=== PATIENT | male | born 1945 | race Caucasian/White ===

== ENCOUNTER 2016-07-11 13:41 | Inpatient (IN) | payer MEDICARE ==
[2016-07-11] MEDS ORDERED: Morphine INJ* 4 MG/ML 1 ML CARPUJECT IV ONE ×2 (14:44→16:25)
[2016-07-11] MEDS ORDERED: NS 0.9% 1000 ML* 1,000 ML IV ONE (14:44)
[2016-07-11] MEDS ORDERED: Ondansetron INJ* 2 MG/ML VIAL IV ONE (14:44)
--- NOTE | 2016-07-11 15:02 | RAD ---
Indication: Preop. 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 Single view of the chest demonstrates no mediastinal shift. Heart is of normal size and configuration. Lung ruth are clear. IMPRESSION: NO ACTIVE CARDIOPULMONARY DISEASE IS NOTED.
--- NOTE | 2016-07-11 15:12 | RAD ---
Indication: Severe LEFT hip pain for 3 weeks. Remote fall 2010 years ago. Comparison: None. Technique: AP pelvis and AP and crosstable lateral views LEFT hip. Report: Transcervical mildly impacted LEFT femoral neck fracture with mild varus angulation. Permeative pattern of lucencies in the LEFT femoral neck suspicious for a potential underlying pathologic lesion predisposing to fracture. The femoral head is normally located in the acetabulum. Negative for pelvic fracture or joint diastases. No additional osseous lesions evident. Both hips are remarkable for mild osteophytosis with partial loss of femoral head sphericity. Soft tissue swelling about the LEFT hip. IMPRESSION: Transcervical LEFT femoral neck fracture with suggestion of an underlying infiltrative pathologic lesion. Correlate with clinical history. Results discussed with JENNA Wise 07/11/2016 3:09 PM EST
[2016-07-11 15:29] LABS: Hematocrit 45 % (42-52); Hemoglobin 15.3 g/dl (14.0-18.0); Mean Corpuscular HGB Conc 34 g/dl (31-36); Mean Corpuscular Hemoglobin 28 pg (27-31); Mean Corpuscular Volume 82 fL (80-94); Mean Platelet Volume 8 um3 (7.4-10.4); Red Blood Count 5.49 10^6/ul (4.0-5.4); Red Cell Distribution Width 15 % (10.5-15); White Blood Count 10.3 10^3/ul (3.5-10.8)
[2016-07-11 15:41] LABS: Albumin 4.3 g/dL (3.2-5.2); BUN/Creatinine Ratio 19.8 (8-20); Calcium 10.2 mg/dL (8.6-10.3); EGFR African American 121.5 (>60); EGFR Non-African American 94.5 (>60); Globulin 3.2 g/dL (2-4); Potassium 3.6 mmol/L (3.5-5.0); Total Bilirubin 0.8 mg/dL (0.2-1.0); Total Protein 7.5 g/dL (6.4-8.9)
--- NOTE | 2016-07-11 16:00 | RAD ---
INDICATION: Left hip fracture. COMPARISON: Comparison is made with a prior x-ray study of the left hip from July 11, 2016. TECHNIQUE: Contiguous axial sections were obtained through the pelvis without intravenous or oral contrast. Images were reconstructed in the coronal and sagittal planes. FINDINGS: There are multiple lytic areas present within the left femoral head and neck. There is a transverse pathologic fracture through the proximal portion of the femoral neck. The fracture fragments are slightly impacted. There is mild varus angulation of the fracture fragments. There are small well-defined lucent lesions in the right femoral head. These have well-defined margins and likely represent subchondral cysts. No other focal osseous abnormalities are seen in the pelvis. There is mild to moderate bilateral osteoarthritic change in the hips. The visualized portion of the small bowel and colon appear nondistended. There is moderate to severe sigmoid diverticulosis without evidence for diverticulitis. No free intraperitoneal air or fluid is seen. IMPRESSION: LYTIC LESIONS WITHIN THE LEFT FEMORAL HEAD AND NECK MOST CONSISTENT WITH AN UNDERLYING NEOPLASTIC PROCESS LIKELY METASTATIC LESS LIKELY PRIMARY TUMOR. THERE IS AN UNDERLYING PATHOLOGIC FRACTURE OF THE FEMORAL NECK DESCRIBED ABOVE.
--- NOTE | 2016-07-11 16:25 | ED ---
Lower Extremity - HPI Summary HPI Summary: Patient presents with extreme left hip pain without known injury. He began to have pain in the hip approximately three weeks ago, but He has walked with a cane for a year due to right knee pain and had what he thought was intermittent left hip bursitis. His pain intensified three weeks ago and 2-3 days ago it became unbearable, so he went to [facility]. He was scheduled for an x-ray today and given percocet. He has continued to walk on the hip with his cane. Today the pain was intolerable so he came to the ED. He denies previous injury to this hip. He thinks he is pretty healthy, because he never sees a doctor, and if he does have an issue he "just gets through it". No N/T, erythema, or edema. - History of Current Complaint Chief Complaint: EDExtremityLower Stated Complaint: LT HIP INJURY Time Seen by Provider: 07/11/16 14:09 Hx Obtained From: Patient, Family/Lubricating Engineer Mechanism Of Injury: Unknown Onset of Pain: Days Onset/Duration: Worse Since - two days ago Severity Initially: Severe Severity Currently: Severe Pain Intensity: 13 Timing: Constant Location: Is Discrete @ - left hip Character Of Pain: Sharp, Aching Associated Signs And Symptoms: Positive: Negative Aggravating Factor(s): Standing, Movement Alleviating Factor(s): Nothing Able to Bear Weight: No - Allergies/Home Medications Allergies/Adverse Reactions: Allergies Allergy/AdvReac Type Severity Reaction Status Date / Time No Known Allergies Allergy Verified 04/03/12 18:33 Home Medications: Home Medications NK [No Home Medications Reported] 07/11/16 [History Confirmed 07/11/16] PMH/Surg Hx/FS Hx/Imm Hx Previously Healthy: Yes Musculoskeletal History: Denies: Hx Rheumatoid Arthritis, Hx Osteoporosis Infectious Disease History: No Infectious Disease History: Denies: Traveled Outside the [place] in Last 30 Days - Social History Occupation: Employed Full-time Lives: With Family Alcohol Use: None Substance Use Type: Reports: None Smoking Status (MU): Never Smoked Tobacco Review of Systems Positive: Myalgia, Decreased ROM All Other Systems Reviewed And Are Negative: Yes Physical Exam Triage Information Reviewed: Yes Vital Signs On Initial Exam: Initial Vitals BP 154/81 07/11/16 14:06 Vital Signs Reviewed: Yes Appearance: Positive: Well-Appearing, Well-Nourished, Pain Distress Skin: Positive: Warm, Skin Color Reflects Adequate Perfusion, Dry, Soft Head/Face: Positive: Normal Head/Face Inspection Eyes: Positive: EOMI, LARISA, Conjunctiva Clear ENT: Positive: Hearing grossly normal Respiratory/Lung Sounds: Positive: Breath Sounds Present Cardiovascular: Positive: RRR Musculoskeletal: Positive: Limited @ - any movement of the left hip causes excruciating pain, Pain @ - TTP left hip Neurological: Positive: Sensory/Motor Intact, Alert, Oriented to Person Place, Time, NV Bundle Intact Distally, Unable to Assess Gait Psychiatric: Positive: Affect/Mood Appropriate AVPU Assessment: Alert - Alla Coma Scale Coma Scale Total: 15 Diagnostics - Vital Signs Vital Signs Temp Pulse Resp BP Pulse Ox 07/11/16 15:17 20 07/11/16 15:14 82 157/78 98 07/11/16 15:11 87 98 07/11/16 14:08 98.2 F 82 18 154/81 99 07/11/16 14:06 154/81 - Laboratory Lab Results: Lab Results 07/11/16 07/11/16 07/11/16 Range/Units 15:05 15:05 15:05 WBC 10.3 (3.5-10.8) 10^3/ul RBC 5.49 H (4.0-5.4) 10^6/ul Hgb 15.3 (14.0-18.0) g/dl Hct 45 (42-52) % MCV 82 (80-94) fL MCH 28 (27-31) pg MCHC 34 (31-36) g/dl RDW 15 (10.5-15) % Plt Count 296 (150-450) 10^3/ul MPV 8 (7.4-10.4) um3 Neut % (Auto) 79.5 (38-83) % Lymph % (Auto) 11.9 L (25-47) % [place] % (Auto) 7.5 (1-9) % Eos % (Auto) 0.3 (0-6) % Baso % (Auto) 0.8 (0-2) % Absolute Neuts (auto) 8.2 H (1.5-7.7) 10^3/ul Absolute Lymphs (auto) 1.2 (1.0-4.8) 10^3/ul Absolute Monos (auto) 0.8 (0-0.8) 10^3/ul Absolute Eos (auto) 0 (0-0.6) 10^3/ul Absolute Basos (auto) 0.1 (0-0.2) 10^3/ul Absolute Nucleated RBC 0 10^3/ul Nucleated RBC % 0 INR (Anticoag Therapy) 0.98 (0.89-1.11) Sodium 135 (133-145) mmol/L Potassium 3.6 (3.5-5.0) mmol/L Chloride 102 (101-111) mmol/L Carbon Dioxide 22 (22-32) mmol/L Anion Gap 11 (2-11) mmol/L BUN 16 (6-24) mg/dL Creatinine 0.81 (0.67-1.17) mg/dL Est GFR ( Amer) 121.5 (>60) Est GFR (Non-Af Amer) 94.5 (>60) BUN/Creatinine Ratio 19.8 (8-20) Glucose 118 H (70-100) mg/dL Calcium 10.2 (8.6-10.3) mg/dL Total Bilirubin 0.80 (0.2-1.0) mg/dL AST 25 (13-39) U/L ALT 13 (7-52) U/L Alkaline Phosphatase 89 (34-104) U/L Total Protein 7.5 (6.4-8.9) g/dL Albumin 4.3 (3.2-5.2) g/dL Globulin 3.2 (2-4) g/dL Albumin/Globulin Ratio 1.3 (1-3) Result Diagrams: 07/14/16 06:12 07/14/16 06:12 Lab Statement: Any lab studies that have been ordered have been reviewed, and results considered in the medical decision making process. - Radiology No standard instances Xray Interpretation: Positive (See Comments) Radiology Interpretation Completed By: Radiologist - left femoral neck fracture - CT No standard instances CT Interpretation: Positive (See Comments) CT Interpretation Completed By: Radiologist - Left femoral neck fracture that appear pathologic Re-Evaluation - Re-Evaluation First Eval Re-Evaluation Time: 16:00 Change: Improved - pain improved but present Second Eval Re-Evaluation Time: 16:15 Change: Worse - pain increased after manipulation for CT. Lower Extremity Course/Dx - Diagnoses Differential Diagnosis/HQI/PQRI: Positive: Arthritis, Bursitis, Compartment Syndrome, Dislocation, Fracture (Closed), Infection, Sprain, Strain Provider Diagnoses: Fracture of femoral neck, left, closed - Physician Notifications Discussed Care of Patient With: Dr. Bills with orthopedis surgery; Dr. Lundberg with hospital medicine Time Discussed With Above Provider: 15:40 Instructed by Provider To: Admit As Inpatient Discharge - Discharge Plan Condition: Stable Disposition: ADMITTED TO [facility]
--- NOTE | 2016-07-11 17:22 | RAD ---
Indication: Hip fracture. 4 views of the femur demonstrates no fracture of the diaphysis or distal femur. Comminuted fracture of the neck of the left femur is again noted. No obvious lytic lesions are noted in the distal shaft of the femur. IMPRESSION: Fracture of the neck of the left femur. The diaphysis is grossly unremarkable.
[2016-07-11] MEDS ORDERED: Ondansetron INJ* 2 MG/ML VIAL IV PRN (18:02)
[2016-07-11] MEDS ORDERED: Diatrizoate Meg/Sod(CONTRAST) 30 ML ORAL.SOLN PO ONE (18:02)
[2016-07-11] MEDS ORDERED: Acetaminophen TAB* 325 MG PO PRN (18:02)
[2016-07-11] MEDS ORDERED: Zolpidem TAB* 5 MG PO PRN (18:03)
[2016-07-11] MEDS ORDERED: hydrALAZINE IV* 20 MG/ML VIAL IV SLOW PU PRN (18:11)
[2016-07-11] MEDS ORDERED: Iohexol 300* (CONTRAST) 10 ML SDV IV ONE (18:20)
[2016-07-11] MEDS: Morphine INJ* 4 MG/ML 1 ML CARPUJECT IV PRN ×2 (19:46→23:18)
[2016-07-11] MEDS: NS 0.9% 1000 ML* 1,000 ML IV SCH (20:15)
[2016-07-11] MEDS: oxyCODONE TAB* 5 MG TAB PO PRN (20:18)
--- NOTE | 2016-07-11 20:18 | RAD ---
Indication: Pathologic fracture, evaluate for malignancy. CT of the chest, abdomen and pelvis was performed after IV contrast administration. Coronal and sagittal reconstructed images were obtained. Administered 91.0 ml of OMNIPAQUE 300 mgi/ml was given according to hospital protocol. Inferior thyroid lobes are unremarkable. No mediastinal or hilar adenopathy is noted. The heart demonstrates no pericardial effusion. The trachea and major bronchi appear patent. The lung ruth demonstrate dependent changes. No alveolar consolidation is noted. No pleural fluid is identified. No focal nodules are identified. There is increased sclerosis in the right humeral head. This may be due to avascular necrosis although other etiologies are not excluded. The left humeral head demonstrates minimal sclerosis. The liver is normal in size. No intrahepatic ductal dilatation is noted. Small low density lesion in the inferior tip of the right lobe of liver measures approximately 5 mm. No other focal lesions are present. The gallbladder demonstrates no calcified gallstones. No pericholecystic fluid or wall thickening is noted. The pancreas demonstrates no mass or pancreatic duct dilatation. The spleen is normal in size. No adrenal lesions are noted. The kidneys demonstrate symmetric nephrograms without evidence of focal lesions. Atherosclerotic aorta is noted. Small retroperitoneal lymph nodes are noted in the left para-aortic space. They measure up to 12 mm. Common iliac and external iliac arteries are unremarkable. No dilated loops of bowel are noted. The mesentery demonstrates multiple scattered mesenteric lymph nodes which are mildly enlarged. The measure up to 8 mm. There is some infiltration of fat in this area. No dilated loops of bowel are noted. The colon is filled with stool. The urinary bladder is unremarkable. The prostate is unremarkable. No hernias are noted. Right inguinal lymph node measuring up to 11 mm is noted. Again noted is a left hip fracture with multiple lytic and sclerotic areas. Lytic lesions are noted in the right femoral head as well although the well defined. IMPRESSION: Increased sclerosis in the right humeral head of uncertain etiology. No pulmonary lesions are noted. Nonspecific 5 mm low density is noted in the inferior tip of the right lobe of liver. Multiple mesenteric lymph nodes are noted as well as left periaortic and retroperitoneal lymph nodes. These are of uncertain etiology. Right inguinal lymph node measuring up to 11 mm is noted. Several small lytic lesion in the right femoral head as well as lytic and sclerotic lesions in the left femoral neck..
[2016-07-11] MEDS: Enoxaparin(*) 40 MG/0.4 ML SYR SUBCUT SCH (20:20)
[2016-07-11] MEDS: Senna TAB PO SCH (20:22)
[2016-07-11] MEDS: Docusate CAP* 100 MG PO SCH (20:22)
--- NOTE | 2016-07-11 21:20 | HP ---
ADMISSION HISTORY AND PHYSICAL: DATE OF ADMISSION: 07/11/16 PRIMARY CARE PROVIDER: Dr. Irving HEALTHCARE PROXY: His son. CODE STATUS: Full. SOURCE OF INFORMATION: History obtained from interview with the patient. RELIABILITY: Good. CHIEF COMPLAINT: Left hip pain. HISTORY OF PRESENT ILLNESS: This is a 71-year-old gentleman with no known past medical history who had been experiencing intermittent left hip pain that represents intermittent bursitis that became more consistent over the last 3 weeks and persistently worse in pain over the last 2 to 3 days. He was seen at [facility], given Percocet and was planning for an x-ray followup today except his pain was intolerable today and proceeded to [facility]. In the emergency room, x-ray was notable for transcervical left femoral neck fracture. There was suggestion of underlying infiltrative pathologic process. He notes no trauma to the leg or hip. He notes strenuousl activity is____ deer hunting or fly fishing. He built a house this year. He never experienced shortness of breath or chest pain. He had a knee surgery in 1970, had no difficulty with anesthesia. He does wear dentures, has had no neck trauma. When seen by this author, he had received 4 mg of morphine. His pain was well controlled, although not completely abated. He had no complaints. PAST MEDICAL HISTORY: No known past medical history. PAST SURGICAL HISTORY: Right knee surgery in 1970. MEDICATIONS: Takes [id number] multivitamin once daily. ALLERGIES: No known drug allergies. FAMILY HISTORY: No history of CAD. Father had prostate cancer. SOCIAL HISTORY: Tobacco, 2 packs per day for 10 years, quit 25 years prior. History of alcohol abuse, quit 40 years prior. Retired from the [employer]. REVIEW OF SYSTEMS: Hip pain, otherwise all other systems reviewed, negative. PHYSICAL EXAMINATION GENERAL: Sitting up in bed, interactive, pleasant, in no apparent distress. VITAL SIGNS: In the emergency room, blood pressure 164/79, heart rate 82, respiratory rate 16, 98% on room air, T-max in the emergency room 98.2. HEENT: Oropharynx is clear. Moist mucous membranes. Sclerae anicteric. NECK: Non-elevated JVD. Has 1 to 2 mm mobile, nontender lymph node on his anterior cervical chain on the right. LUNGS: Clear to auscultation bilaterally. HEART: Regular rate and rhythm. No murmurs, rubs, or gallops. ABDOMEN: Soft, nontender, nondistended. Positive bowel sounds. EXTREMITIES: Warm and well perfused without clubbing, cyanosis, or edema. NEURO: Alert and oriented x3. Cranial nerves are intact. He has pain over his left hip with any movement of his left leg. No apparent anxiety, agitation or depression. LABORATORY DATA: Pertinent labs reviewed. BUN 15, creatinine 0.81, glucose of 118, hemoglobin 15.3. Data reviewed. Chest x-ray: No active cardiopulmonary disease. CT pelvis: Impression, lytic lesions within the left femoral head and neck most consistent with an underlying neoplastic process likely metastatic disease , less likely primary tumor. There is an underlying pathologic fracture on the femoral neck. ASSESSMENT AND PLAN: This is a 71-year-old man with persistent left hip pain found with pathologic hip fracture, concerning underlying neoplastic process. 1. Hip fracture, seen by Dr. Bills, discussed with this author. The necessary hardware is not currently available. Plan for surgery Friday. Pain control with morphine as well as oxycodone or Tylenol as needed. Concern for the underlying neoplastic process. Plan on a CT chest, abdomen and pelvis with contrast. Two liters of normal saline in the setting of contrast. BMP in the morning. Low risk for intermediate risk procedure. No change to above medications. No additional testing needed prior to procedure. EKG is pending which we will obtain given he will be in the hospital two days prior to the OR. 2. DVT prophylaxis. Lovenox. 3. Code status. Full. CC: Dr. Irving * [id number]/CPS #: [id number]
[2016-07-12] MEDS: oxyCODONE TAB* 5 MG TAB PO PRN ×4 (01:38→18:17)
[2016-07-12] MEDS: Morphine INJ* 4 MG/ML 1 ML CARPUJECT IV PRN ×3 (03:54→20:44)
[2016-07-12] MEDS: NS 0.9% 1000 ML* 1,000 ML IV SCH (04:47)
[2016-07-12 06:09] LABS: BUN/Creatinine Ratio 14.3 (8-20); Calcium 8.9 mg/dL (8.6-10.3); EGFR African American 128.8 (>60); EGFR Non-African American 100.2 (>60); Potassium 3.9 mmol/L (3.5-5.0)
--- NOTE | 2016-07-12 08:20 | PN ---
Subjective Date of Service: 07/12/16 Interval History: Seen and examined Slept but not great. Srini did not help Pain tolerable but still present Results from CT shared Objective Active Medications: Acetaminophen (Tylenol Tab*) 650 mg PO Q6H PRN PRN Reason: PAIN Docusate Sodium (Colace Cap*) 100 mg PO BID [facility] Last Admin: 07/11/16 20:22 Dose: Not Given Enoxaparin Sodium (Lovenox(*)) 40 mg SUBCUT Q24H [facility] Last Admin: 07/11/16 20:20 Dose: 40 mg Hydralazine HCl (Apresoline Iv*) 5 mg IV SLOW PU Q6H PRN PRN Reason: SBP>180 OR DBP>110 Sodium Chloride (Ns 0.9% 1000 Ml*) 1,000 mls @ 125 mls/hr IV PER RATE [facility] Stop: 07/13/16 02:14 Last Admin: 07/12/16 04:47 Dose: 125 mls/hr Morphine Sulfate (Morphine Inj (Syringe)*) 4 mg IV Q4H PRN PRN Reason: PAIN Last Admin: 07/12/16 03:54 Dose: 4 mg Ondansetron HCl (Zofran Inj*) 4 mg IV Q4H PRN PRN Reason: NAUSEA Oxycodone HCl (Roxycodone Tab*) 5 mg PO Q4H PRN PRN Reason: PAIN Last Admin: 07/12/16 01:38 Dose: 5 mg Senna (Senokot Tab*) 1 tab PO BID [facility] Last Admin: 07/11/16 20:22 Dose: Not Given Zolpidem Tartrate (Ambien Tab*) 5 mg PO BEDTIME PRN PRN Reason: INSOMNIA Last Admin: 07/11/16 21:31 Dose: 5 mg Vital Signs 07/11/16 07/11/16 07/11/16 18:30 19:46 20:00 Temperature 98.1 F Pulse Rate 83 84 Respiratory 18 18 Rate Blood Pressure 170/78 128/106 (mmHg) O2 Sat by Pulse 97 100 Oximetry 07/11/16 07/11/16 07/11/16 20:05 20:18 20:46 Temperature 98.1 F Pulse Rate 84 Respiratory 18 18 17 Rate Blood Pressure 128/106 (mmHg) O2 Sat by Pulse 100 Oximetry 07/11/16 07/11/16 07/11/16 21:38 22:18 23:15 Temperature 97.4 F Pulse Rate 84 Respiratory 18 17 16 Rate Blood Pressure 157/81 (mmHg) O2 Sat by Pulse 97 Oximetry 07/11/16 07/12/16 07/12/16 23:18 00:18 01:38 Temperature Pulse Rate Respiratory 16 16 17 Rate Blood Pressure (mmHg) O2 Sat by Pulse Oximetry 07/12/16 07/12/16 07/12/16 03:38 03:54 03:57 Temperature 97.9 F Pulse Rate 78 Respiratory 16 17 16 Rate Blood Pressure 171/70 (mmHg) O2 Sat by Pulse 96 Oximetry 07/12/16 04:53 Temperature Pulse Rate Respiratory 16 Rate Blood Pressure (mmHg) O2 Sat by Pulse Oximetry Oxygen Devices in Use Now: None Appearance: NAD Eyes: No Scleral Icterus, PERRLA Ears/Nose/Mouth/Throat: NL Teeth, Lips, Gums, Clear Oropharnyx Neck: NL Appearance and Movements; NL JVP, Trachea Midline Respiratory: Symmetrical Chest Expansion and Respiratory Effort, Clear to Auscultation Cardiovascular: NL Sounds; No Murmurs; No JVD, RRR Abdominal: NL Sounds; No Tenderness; No Distention, No Hepatosplenomegaly Lymphatic: No Cervical Adenopathy Extremities: No Edema, - - NV intact in LE Neurological: Alert and Oriented x 3 Result Diagrams: 07/11/16 15:05 07/12/16 05:35 Additional Lab and Data: Lab Results 07/11/16 07/11/16 07/11/16 Range/Units 15:05 15:05 15:05 WBC 10.3 (3.5-10.8) 10^3/ul RBC 5.49 H (4.0-5.4) 10^6/ul Hgb 15.3 (14.0-18.0) g/dl Hct 45 (42-52) % MCV 82 (80-94) fL MCH 28 (27-31) pg MCHC 34 (31-36) g/dl RDW 15 (10.5-15) % Plt Count 296 (150-450) 10^3/ul MPV 8 (7.4-10.4) um3 Neut % (Auto) 79.5 (38-83) % Lymph % (Auto) 11.9 L (25-47) % [place] % (Auto) 7.5 (1-9) % Eos % (Auto) 0.3 (0-6) % Baso % (Auto) 0.8 (0-2) % Absolute Neuts (auto) 8.2 H (1.5-7.7) 10^3/ul Absolute Lymphs (auto) 1.2 (1.0-4.8) 10^3/ul Absolute Monos (auto) 0.8 (0-0.8) 10^3/ul Absolute Eos (auto) 0 (0-0.6) 10^3/ul Absolute Basos (auto) 0.1 (0-0.2) 10^3/ul Absolute Nucleated RBC 0 10^3/ul Nucleated RBC % 0 INR (Anticoag Therapy) 0.98 (0.89-1.11) Sodium 135 (133-145) mmol/L Potassium 3.6 (3.5-5.0) mmol/L Chloride 102 (101-111) mmol/L Carbon Dioxide 22 (22-32) mmol/L Anion Gap 11 (2-11) mmol/L BUN 16 (6-24) mg/dL Creatinine 0.81 (0.67-1.17) mg/dL Est GFR ( Amer) 121.5 (>60) Est GFR (Non-Af Amer) 94.5 (>60) BUN/Creatinine Ratio 19.8 (8-20) Glucose 118 H (70-100) mg/dL Calcium 10.2 (8.6-10.3) mg/dL Total Bilirubin 0.80 (0.2-1.0) mg/dL AST 25 (13-39) U/L ALT 13 (7-52) U/L Alkaline Phosphatase 89 (34-104) U/L Total Protein 7.5 (6.4-8.9) g/dL Albumin 4.3 (3.2-5.2) g/dL Globulin 3.2 (2-4) g/dL Albumin/Globulin Ratio 1.3 (1-3) Assess/Plan/Problems-Billing Assessment: 71 yo M no known medical history presents with pathologic fracture - Patient Problems (1) Pathological fracture Comment: Left hip with concern for underlying malignancy based on CT findings of b/l hips. CT chest/abd/pelvis without obvious primary source. Plan on OR Friday with tissue diagnosis when necessary hardware arrives Pain control with PO and IV breakthrough EKG unremarkable - no further testing needed prior to OR (2) Hypertension Comment: In setting of pain will tx with PRN hydralazine. Start PO med if continues post op (3) DVT prophylaxis Comment: lovenox
[2016-07-12] MEDS: Docusate CAP* 100 MG PO SCH ×2 (08:27→20:44)
[2016-07-12] MEDS: Senna TAB PO SCH ×2 (09:09→20:44)
[2016-07-12] MEDS: Enoxaparin(*) 40 MG/0.4 ML SYR SUBCUT SCH (18:18)
[2016-07-13] MEDS: oxyCODONE TAB* 5 MG TAB PO PRN (02:12)
[2016-07-13] MEDS ORDERED: Lidocaine 2% MPF* 2 ML VIAL ONE (07:28)
[2016-07-13] MEDS ORDERED: fentaNYL* 50 MCG/ML 2 ML VIAL (100 MCG VIAL) ONE ×2 (07:28→11:22)
[2016-07-13] MEDS ORDERED: Ondansetron INJ* 2 MG/ML VIAL ONE (07:28)
[2016-07-13] MEDS ORDERED: Ketorolac INJ* 30 MG/ML 1 ML VIAL ONE (07:28)
[2016-07-13] MEDS ORDERED: Dexamethasone IV* 4 MG/ML 1 ML (4 MG) ONE (07:28)
[2016-07-13] MEDS ORDERED: Propofol* 10 MG/ML 20 ML BTL IV PUSH ONE (07:28)
[2016-07-13] MEDS ORDERED: Bupivacaine 0.5% SDV PF* 30 ML VIAL ONE (07:28)
[2016-07-13] MEDS ORDERED: KETAMINE HCL* 50 MG/ML 10 ML VIAL ONE (07:28)
[2016-07-13] MEDS ORDERED: Midazolam* 1 MG/ML 5 ML VIAL (5 MG) ONE (07:28)
[2016-07-13] MEDS ORDERED: Morphine PF AMP (0.5MG/ML)* 5 MG/10 ML AMP ONE (07:29)
[2016-07-13] MEDS ORDERED: ceFAZolin 2 GM PREMIX (*) 2 GM/50 ML BAG IVPB ONE (08:00)
[2016-07-13] MEDS ORDERED: Cisatracurium* 2 MG/ML MDV 10 ML ONE (08:05)
[2016-07-13] MEDS ORDERED: fentaNYL* 50 MCG/ML 5 ML VIAL (250 MCG VIAL) ONE (08:18)
[2016-07-13] MEDS ORDERED: Phenylephrine IV* 40 MCG/ML 10 ML SYRINGE ONE (08:49)
[2016-07-13] MEDS ORDERED: Bupivacaine 0.25% W/EPI* 50 ML VIAL ONE (08:55)
[2016-07-13] MEDS ORDERED: Bupivacaine 0.25% EPI 200,000* 30 ML SDV ONE (08:56)
[2016-07-13] MEDS ORDERED: HYDROmorphone INJ* 1 MG/ML CARPUJECT SYRINGE ONE ×2 (09:36→11:41)
[2016-07-13] MEDS ORDERED: EPHEDrine (Pressors)* 50 MG/ML VIAL ONE (09:59)
[2016-07-13] MEDS ORDERED: Bisacodyl SUPP* 10 MG SUPP PR PRN (10:51)
[2016-07-13] MEDS ORDERED: diPHENhydraMINE IV* 50 MG/ML 1 ml VIAL (BENADRYL) IV PRN (10:51)
[2016-07-13] MEDS ORDERED: oxyCODONE/Acetamin 5/325 MG* TAB PO PRN (10:51)
[2016-07-13] MEDS ORDERED: Temazepam CAP* 15 MG PO PRN (10:51)
[2016-07-13] MEDS ORDERED: HYDROmorphone INJ* 1 MG/ML CARPUJECT SYRINGE IV PRN (10:57)
[2016-07-13] MEDS ORDERED: Ondansetron INJ* 2 MG/ML VIAL IV PRN (10:57)
[2016-07-13] MEDS ORDERED: D5W 1/2 NS 1000 ML BAG* 1,000 ML IV SCH (11:00)
[2016-07-13] MEDS ORDERED: Acetaminophen TAB* 325 MG PO PRN (11:04)
[2016-07-13] MEDS: fentaNYL* 50 MCG/ML 2 ML VIAL (100 MCG VIAL) IV PRN ×2 (11:23→11:33)
--- NOTE | 2016-07-13 11:37 | RAD ---
INDICATION: Status post left hip replacement surgery postoperative exam. COMPARISON: Comparison is made with prior x-ray study of the left hip from July 11, 2016. TECHNIQUE: An AP view of the pelvis was obtained. FINDINGS: The patient is status post total left hip replacement surgery with a longstem femoral prosthesis. The bones and prostheses are in normal alignment. There is air within the adjacent soft tissues and several surgical ivon present laterally consistent with the patient's recent surgery. Incidental note is made of mild to moderate osteoarthritic change in the right hip. IMPRESSION: STATUS POST TOTAL LEFT HIP REPLACEMENT SURGERY.
[2016-07-13] MEDS ORDERED: oxyCODONE/Acetamin 5/325 MG* TAB ONE (11:41)
[2016-07-13] MEDS: oxyCODONE/Acetamin 5/325 MG* TAB PO PRN ×5 (11:43→22:48)
[2016-07-13] MEDS: Docusate CAP* 100 MG PO SCH ×2 (12:59→22:54)
[2016-07-13] MEDS: Senna TAB PO SCH ×2 (13:00→22:54)
[2016-07-13] MEDS: ceFAZolin 1 GM in Dextrose (*) 1 GM/50 ML BAG IVPB SCH ×2 (14:57→21:23)
--- NOTE | 2016-07-13 16:04 | PN ---
Subjective Date of Service: 07/13/16 Interval History: Seen after OR today Pain well controlled Says he is doing well "given the circumstances" Objective Active Medications: Acetaminophen (Tylenol Tab*) 650 mg PO Q6H PRN PRN Reason: PAIN OR TEMPERATURE Bisacodyl (Dulcolax Supp*) 10 mg [place] DAILY PRN PRN Reason: constipation Diphenhydramine HCl (Benadryl Iv*) 25 mg IV Q6H PRN PRN Reason: itching Docusate Sodium (Colace Cap*) 100 mg PO BID [facility] Last Admin: 07/13/16 12:59 Dose: Not Given Enoxaparin Sodium (Lovenox(*)) 30 mg SUBCUT Q24H JOANNE Hydralazine HCl (Apresoline Iv*) 5 mg IV SLOW PU Q6H PRN PRN Reason: SBP>180 OR DBP>110 Dextrose/Sodium Chloride (D5w 1/2 Ns 1000 Ml Bag*) 1,000 mls @ 125 mls/hr IV PER RATE [facility] Cefazolin Sodium/Dextrose (Kefzol 1 Gm In Dextrose Duplex (*)) 1 gm in 50 mls @ 200 mls/hr IVPB Q6H [facility] Stop: 07/14/16 03:14 Last Admin: 07/13/16 14:57 Dose: 200 mls/hr Magnesium Hydroxide (Milk Of Magnlux Liq*) 30 ml PO BID [facility] Morphine Sulfate (Morphine Inj (Syringe)*) 4 mg IV Q4H PRN PRN Reason: PAIN Last Admin: 07/12/16 20:44 Dose: 4 mg Ondansetron HCl (Zofran Inj*) 4 mg IV Q4H PRN PRN Reason: NAUSEA Oxycodone HCl (Roxycodone Tab*) 10 mg PO Q4H PRN PRN Reason: PAIN Last Admin: 07/13/16 02:12 Dose: 10 mg Oxycodone/Acetaminophen (Percocet 5/325 Tab*) 1 tab PO ONCE PRN PRN Reason: PAIN - MODERATE Stop: 07/14/16 10:58 Last Admin: 07/13/16 11:44 Dose: 1 tab Oxycodone/Acetaminophen (Percocet 5/325 Tab*) 1 tab PO Q4H PRN PRN Reason: PAIN - MILD Oxycodone/Acetaminophen (Percocet 5/325 Tab*) 2 tab PO Q4H PRN PRN Reason: PAIN - MODERATE Last Admin: 07/13/16 14:12 Dose: 2 tab Senna (Senokot Tab*) 1 tab PO BID JOANNE Last Admin: 07/13/16 13:00 Dose: Not Given Temazepam (Restoril Cap*) 15 mg PO BEDTIME PRN PRN Reason: INSOMNIA Zolpidem Tartrate (Ambien Tab*) 5 mg PO BEDTIME PRN PRN Reason: INSOMNIA Last Admin: 07/11/16 21:31 Dose: 5 mg Vital Signs 07/12/16 07/12/16 07/12/16 16:21 18:17 18:35 Temperature 97.8 F Pulse Rate 87 Respiratory 16 18 16 Rate Blood Pressure 138/70 (mmHg) O2 Sat by Pulse 99 Oximetry 07/12/16 07/12/16 07/12/16 20:17 20:44 20:45 Temperature Pulse Rate Respiratory 16 16 20 Rate Blood Pressure (mmHg) O2 Sat by Pulse Oximetry 07/12/16 07/12/16 07/13/16 21:44 23:28 02:12 Temperature 98.5 F Pulse Rate 82 Respiratory 20 16 20 Rate Blood Pressure 163/88 (mmHg) O2 Sat by Pulse 97 Oximetry 07/13/16 07/13/16 07/13/16 04:12 07:36 10:57 Temperature 98.0 F 96.8 F Pulse Rate 80 105 Respiratory 16 16 18 Rate Blood Pressure 165/75 136/76 (mmHg) O2 Sat by Pulse 95 95 Oximetry 07/13/16 07/13/16 07/13/16 11:00 11:05 11:10 Temperature Pulse Rate 104 100 96 Respiratory 16 16 14 Rate Blood Pressure 148/81 155/78 150/75 (mmHg) O2 Sat by Pulse 95 97 96 Oximetry 07/13/16 07/13/16 07/13/16 11:15 11:23 11:30 Temperature 97.5 F Pulse Rate 93 91 Respiratory 16 16 14 Rate Blood Pressure 158/90 157/83 (mmHg) O2 Sat by Pulse 96 97 Oximetry 07/13/16 07/13/16 07/13/16 11:33 11:43 11:44 Temperature Pulse Rate Respiratory 16 14 14 Rate Blood Pressure (mmHg) O2 Sat by Pulse Oximetry 07/13/16 07/13/16 07/13/16 11:45 11:49 12:00 Temperature Pulse Rate 87 84 Respiratory 14 14 12 Rate Blood Pressure 163/81 155/78 (mmHg) O2 Sat by Pulse 98 98 Oximetry 07/13/16 07/13/16 07/13/16 12:15 12:49 12:50 Temperature 97.7 F Pulse Rate 84 86 Respiratory 12 16 16 Rate Blood Pressure 153/77 161/83 (mmHg) O2 Sat by Pulse 98 93 Oximetry 07/13/16 07/13/16 07/13/16 12:51 13:04 13:55 Temperature 97.7 F 97.4 F Pulse Rate 86 85 Respiratory 16 18 16 Rate Blood Pressure 161/83 145/78 (mmHg) O2 Sat by Pulse 94 92 Oximetry 07/13/16 07/13/16 14:12 14:48 Temperature 97.9 F Pulse Rate 81 Respiratory 18 16 Rate Blood Pressure 145/69 (mmHg) O2 Sat by Pulse 92 Oximetry Oxygen Devices in Use Now: None Appearance: NAD Eyes: No Scleral Icterus Ears/Nose/Mouth/Throat: Clear Oropharnyx, Mucous Membranes Moist Neck: NL Appearance and Movements; NL JVP, Trachea Midline Respiratory: Symmetrical Chest Expansion and Respiratory Effort, Clear to Auscultation Cardiovascular: NL Sounds; No Murmurs; No JVD, RRR Abdominal: NL Sounds; No Tenderness; No Distention, No Hepatosplenomegaly Lymphatic: No Cervical Adenopathy Extremities: - - n/v intact Neurological: Alert and Oriented x 3 Result Diagrams: 07/11/16 15:05 07/12/16 05:35 Additional Lab and Data: Lab Results 07/11/16 07/11/16 07/11/16 Range/Units 15:05 15:05 15:05 WBC 10.3 (3.5-10.8) 10^3/ul RBC 5.49 H (4.0-5.4) 10^6/ul Hgb 15.3 (14.0-18.0) g/dl Hct 45 (42-52) % MCV 82 (80-94) fL MCH 28 (27-31) pg MCHC 34 (31-36) g/dl RDW 15 (10.5-15) % Plt Count 296 (150-450) 10^3/ul MPV 8 (7.4-10.4) um3 Neut % (Auto) 79.5 (38-83) % Lymph % (Auto) 11.9 L (25-47) % Piatt % (Auto) 7.5 (1-9) % Eos % (Auto) 0.3 (0-6) % Baso % (Auto) 0.8 (0-2) % Absolute Neuts (auto) 8.2 H (1.5-7.7) 10^3/ul Absolute Lymphs (auto) 1.2 (1.0-4.8) 10^3/ul Absolute Monos (auto) 0.8 (0-0.8) 10^3/ul Absolute Eos (auto) 0 (0-0.6) 10^3/ul Absolute Basos (auto) 0.1 (0-0.2) 10^3/ul Absolute Nucleated RBC 0 10^3/ul Nucleated RBC % 0 INR (Anticoag Therapy) 0.98 (0.89-1.11) Sodium 135 (133-145) mmol/L Potassium 3.6 (3.5-5.0) mmol/L Chloride 102 (101-111) mmol/L Carbon Dioxide 22 (22-32) mmol/L Anion Gap 11 (2-11) mmol/L BUN 16 (6-24) mg/dL Creatinine 0.81 (0.67-1.17) mg/dL Est GFR ( Amer) 121.5 (>60) Est GFR (Non-Af Amer) 94.5 (>60) BUN/Creatinine Ratio 19.8 (8-20) Glucose 118 H (70-100) mg/dL Calcium 10.2 (8.6-10.3) mg/dL Total Bilirubin 0.80 (0.2-1.0) mg/dL AST 25 (13-39) U/L ALT 13 (7-52) U/L Alkaline Phosphatase 89 (34-104) U/L Total Protein 7.5 (6.4-8.9) g/dL Albumin 4.3 (3.2-5.2) g/dL Globulin 3.2 (2-4) g/dL Albumin/Globulin Ratio 1.3 (1-3) Assess/Plan/Problems-Billing Assessment: 71 yo M no known medical history presents with pathologic fracture s/p OR - Patient Problems (1) Pathological fracture Comment: Left hip hemiarthroplasty 07/13/16 Concern for underlying malignancy based on CT findings of b/l hips. CT chest/abd /pelvis without obvious primary source. Pain control with PO and IV breakthrough (2) Hypertension Comment: In setting of pain will tx with PRN hydralazine. Start PO med if HTN remains now that pt is post op (3) DVT prophylaxis Comment: lovenox
[2016-07-13] MEDS: Morphine INJ* 4 MG/ML 1 ML CARPUJECT IV PRN (16:50)
[2016-07-13] MEDS ORDERED: Calcium Carbonate CHEW TAB* 500 MG (TUMS) PO PRN (20:17)
[2016-07-13] MEDS ORDERED: Calcium Carbonate CHEW TAB* 500 MG (TUMS) ONE (20:19)
[2016-07-13] MEDS ORDERED: Pantoprazole IV* 40 MG ONE (21:14)
[2016-07-13] MEDS: Pantoprazole IV* 40 MG IV SCH (21:23)
[2016-07-13] MEDS: Magnesium Hydroxide LIQ* 30 ML UDC PO SCH (21:24)
--- NOTE | 2016-07-13 22:23 | OP ---
DATE OF SURGERY: 07/13/16 - ROOM #338 DATE OF : 49 SURGEON: Emerson Bills MD. PIGMENT AND LACQUER MIXER: Lanie Okeefe RPA. ANESTHESIOLOGIST: Deshaun Hussein MD ANESTHESIA: General. PRE-OP DIAGNOSIS: Pathological fracture, left hip. POST-OP DIAGNOSIS: Pathological fracture, left hip. OPERATIVE PROCEDURE: Left hip long stem cemented hemiarthroplasty. ESTIMATED BLOOD LOSS: Less than 150 cc. COMPLICATIONS: None. HARDWARE: Bret versus long stem revision +3.5 28-mm head with 49 mm bipolar cup. SUMMARY: Mr. Roca is a 71-year-old male who on presented to the emergency room. He had a several-week history of significant left hip pain and had received Percocet and Motrin as well as a script for an x-ray from his primary. He was going to get the x-ray on Friday, but on his pain was so bad he came to the emergency room here at [facility]. X-rays were taken, which was found to have pathological fracture of his left hip. 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 Treatment for this is a long stent hemiarthroplasty in case there are other lesions along the femur that we cannot see. Full length femur films were obtained and no other lesions were seen. Similarly, CAT scan of the chest, abdomen, and pelvis with contrast was obtained and while some lymph nodes were enlarged, there was no primary identified. I discussed with Mr. Roca that we would send the femoral head for pathology so that we would have a pathological diagnosis. We would also do the long stent hemiarthroplasty so that he can be up, mobile, and have much less pain. Risks of surgery such as infection, scar formation, leg length discrepancy, instability, and increased risk of DVT considering he has cancer was discussed and he had wished to proceed. DESCRIPTION OF PROCEDURE: The patient was brought to the OR and general anesthesia was introduced. Sweeney catheter was placed and he was rolled onto the right side. Left hip area was prepped and then draped. The skin over the incisional area was infiltrated using 0.25% Marcaine with epinephrine and a lateral incision was made first using a 10 blade. Incision was made, came down 10 cm below the greater trochanter and about 10 cm above the tip of the greater trochanter. Incision was carried down through the skin and subcutaneous tissues. Time was taken to make sure that all small bleeders were identified as I did not want a hematoma accumulating. Fascia was sharply incised and gluteus musculature was bluntly split proximally. Greater trochanteric fascia was taken down using electrocautery and nice end with internal rotation of the leg. Nice exposure of the piriformis was obtained. Sharp Hohmann was placed under gluteus medius/gluteus minimus and this enhanced visualization. Electrocautery was used to take down piriformis and short external rotators and I came down along femoral neck. T-capsulotomy was made and normally I do not come into the labrum, but with the T-capsulotomy the femoral neck easily came away from the femoral head and a clean-up cut was taken on the neck. Unfortunately, this was with the regular Versus system and not with the long calcar template as the angle is different. This was only found out later. With the neck out of the way, the head could be seen and I could spin the head and I lifted out a few pieces of the femoral head. This gave me better access to spin the head and using a Ortiz to break the suction, head was then spun out of the cup. Rongeur was used to remove pieces of what I presume to be tumor from the area and the lap and instruments that touched all of this were put separately so that we did not further contaminate the wound later. Wound also was copiously pulse lavaged to clean all that material out and then the laps were changed. Cup was sized and the 49 seemed to have the best fit. Attention was returned. Damp flap was placed in the acetabulum. Attention was returned to the proximal femur. Box osteotome was used to open the femoral canal and again more of the tumorous type tissue was obtained. Rongeur was again used to remove more of this tissue as I did not want to obviously plunge more of the material down into his canal. Material was removed from the medullary canal and a canal finder was easily passed. Beginning with a 10 broach, he was broached easily to 13. He was then trialed and with a 0, his leg length appeared to be restored and he had wonderful stability. Trial instrumention was removed and reamers were brought on. Unfortunately, the Bret reamers were not here and we ended up using the Selden reamers. Keri reamers were not sized for how large they were and just guesstimating with the estimator paperboard boxes to see the width of the reamer, the reamers were run such that what I believe to be a 12 was run through the isthmus as he was fairly tight there based on preoperative templating. Long stem 13 was then trialed and this seemed to fit quite nicely. Unfortunately, at this point it was realized that the neck cut was wrong for this implant and rather than take a full triangular cut top two thirds to one half, was flattened using the saw and the rongeur and this allowed the implant to fit quite nicely. Therefore, I did not believe we needed to resect more bone from the femoral neck and use a 10 mm build up. We also had trialed with 0 head which had restored his leg length, so I thought with the +35, this would also work quite well. Cement was being prepared, but cement gun was not on the field. First 3 bags of cement were wasted in that first round, and while we waited for the cement gun to come up from downstairs, as well as another round of cement to be prepared. Meanwhile, femur was brushed , suctioned, washed, brushed again, suctioned washed and suctioned again. Cement sizers had been used and the reamer sizes were a little bit off as the distal centralizer fit best for an 11 and a 12 did not pass. This was however an estimate, as the isthmus was supposed to be reamed to 12 mm and with the 11 did pass, but the 12 did not. Nonetheless, I still did not want to take more bone. Cement was placed from distal to proximal and then pressurized and the stem was placed and then impacted into place. Extra cement was removed and the cement was allowed to harden. He was then trialed with the +3.5 head and this really, I thought restored his leg length nicely. Hip was again copiously pulse lavaged and then metal head impacted into place and hip was again relocated. Capsule and soft tissues were repaired to the posterior aspect of the greater trochanter. Hip was again copiously pulse lavaged. Fascia was repaired using interrupted #1 Vicryl sutures and the subcutaneous tissues were approximated with 2-0 Vicryl. Skin was closed using ivon. Sterile dressing was applied. The patient was extubated in the OR and was then stable on transfer to the recovery room. [id number]/[facility] #: [id number]
[2016-07-14] MEDS: oxyCODONE/Acetamin 5/325 MG* TAB PO PRN ×5 (03:15→19:46)
[2016-07-14] MEDS: ceFAZolin 1 GM in Dextrose (*) 1 GM/50 ML BAG IVPB SCH (03:15)
[2016-07-14 06:43] LABS: Hematocrit 35 % (42-52); Hemoglobin 11.6 g/dl (14.0-18.0)
[2016-07-14 06:53] LABS: BUN/Creatinine Ratio 14.1 (8-20); Calcium 8.5 mg/dL (8.6-10.3); EGFR African American 126.9 (>60); EGFR Non-African American 98.7 (>60); Potassium 3.8 mmol/L (3.5-5.0)
[2016-07-14] MEDS: Magnesium Hydroxide LIQ* 30 ML UDC PO SCH ×2 (07:34→19:42)
[2016-07-14] MEDS: Docusate CAP* 100 MG PO SCH ×2 (07:34→19:42)
[2016-07-14] MEDS: Senna TAB PO SCH ×2 (07:34→19:42)
[2016-07-14] MEDS: Pantoprazole IV* 40 MG IV SCH (07:34)
[2016-07-14] MEDS: Enoxaparin(*) 30 MG/0.3 ML SYR SUBCUT SCH (07:34)
--- NOTE | 2016-07-14 10:14 | PN ---
Progress Note - Progress Note SOAP: Subjective: Pt states he is doing well. He has moderate hip pain. His pain is well controlled with medication. He has not had a BM but is passing flatus. He denies CP, SOB, fever or chills. Objective: PE- 71 y/o WDWN M in NAD LLE- dressing c/d/i, full f/e of knee, full ROM at ankle, calf soft nontender, NVI Vital Signs Temp Pulse Resp BP Pulse Ox 98.2 F 78 18 146/76 99 07/14/16 07:05 07/14/16 07:05 07/14/16 08:00 07/14/16 07:05 07/14/16 08:00 Laboratory Results - last 24 hr 07/14/16 07/14/16 06:12 06:12 Hgb 11.6 L Hct 35 L Sodium 135 Potassium 3.8 Chloride 103 Carbon Dioxide 26 Anion Gap 6 BUN 11 Creatinine 0.78 Est GFR ( Amer) 126.9 Est GFR (Non-Af Amer) 98.7 BUN/Creatinine Ratio 14.1 Glucose 125 H Calcium 8.5 L Assessment: POD 1 Left hip hemiarthroplasty for pathological fracture Plan: Dressing change tomorrow WBAT LLE- cont PT/OT cont pain control Lovenox for DVT prophylaxis Awaiting pathology report Hospitalists co-managing
[2016-07-14] MEDS ORDERED: LORazepam TAB(*) 1 MG PO PRN (10:42)
[2016-07-14] MEDS: Morphine INJ* 4 MG/ML 1 ML CARPUJECT IV PRN ×2 (13:10→18:44)
--- NOTE | 2016-07-14 17:34 | PN ---
Subjective Date of Service: 07/14/16 Interval History: Seen and examined with brother at bedside pain well controlled with medications Had episode of anxiety this when thinking about current prospect of cancer. Objective Active Medications: Bisacodyl (Dulcolax Supp*) 10 mg [place] DAILY PRN PRN Reason: constipation Calcium Carbonate (Tums*) 500 mg PO TID PRN PRN Reason: heartburn Last Admin: 07/13/16 21:48 Dose: 500 mg Diphenhydramine HCl (Benadryl Iv*) 25 mg IV Q6H PRN PRN Reason: itching Docusate Sodium (Colace Cap*) 100 mg PO BID [facility] Last Admin: 07/14/16 07:34 Dose: 100 mg Enoxaparin Sodium (Lovenox(*)) 30 mg SUBCUT Q24H [facility] Last Admin: 07/14/16 07:34 Dose: 30 mg Hydralazine HCl (Apresoline Iv*) 5 mg IV SLOW PU Q6H PRN PRN Reason: SBP>180 OR DBP>110 Dextrose/Sodium Chloride (D5w 1/2 Ns 1000 Ml Bag*) 1,000 mls @ 125 mls/hr IV PER RATE [facility] Last Admin: 07/13/16 21:24 Dose: 125 mls/hr Lorazepam (Ativan Tab(*)) 1 mg PO Q8H PRN PRN Reason: ANXIETY Magnesium Hydroxide (Milk Of Magnesia Liq*) 30 ml PO BID [facility] Last Admin: 07/14/16 07:34 Dose: 30 ml Morphine Sulfate (Morphine Inj (Syringe)*) 4 mg IV Q4H PRN PRN Reason: PAIN Last Admin: 07/14/16 13:10 Dose: 4 mg Ondansetron HCl (Zofran Inj*) 4 mg IV Q4H PRN PRN Reason: NAUSEA Oxycodone/Acetaminophen (Percocet 5/325 Tab*) 1 tab PO Q4H PRN PRN Reason: PAIN - MILD Oxycodone/Acetaminophen (Percocet 5/325 Tab*) 2 tab PO Q4H PRN PRN Reason: PAIN - MODERATE Last Admin: 07/14/16 15:45 Dose: 2 tab Pantoprazole Sodium (Protonix Iv*) 40 mg IV DAILY [facility] Last Admin: 07/14/16 07:34 Dose: 40 mg Senna (Senokot Tab*) 1 tab PO BID JOANNE Last Admin: 07/14/16 07:34 Dose: 1 tab Temazepam (Restoril Cap*) 15 mg PO BEDTIME PRN PRN Reason: INSOMNIA Vital Signs 07/13/16 07/13/16 07/13/16 17:50 18:00 18:55 Temperature 97.9 F Pulse Rate 78 Respiratory 18 18 16 Rate Blood Pressure 139/79 (mmHg) O2 Sat by Pulse 97 Oximetry 07/13/16 07/13/16 07/13/16 19:23 20:00 22:48 Temperature Pulse Rate Respiratory 16 16 18 Rate Blood Pressure (mmHg) O2 Sat by Pulse Oximetry 07/13/16 07/14/16 07/14/16 22:50 00:48 03:13 Temperature 97.6 F 98.7 F Pulse Rate 78 75 Respiratory 16 16 16 Rate Blood Pressure 138/70 136/57 (mmHg) O2 Sat by Pulse 96 97 Oximetry 07/14/16 07/14/16 07/14/16 03:15 05:15 07:05 Temperature 98.2 F Pulse Rate 78 Respiratory 16 18 16 Rate Blood Pressure 146/76 (mmHg) O2 Sat by Pulse 99 Oximetry 07/14/16 07/14/16 07/14/16 07:34 08:00 09:34 Temperature Pulse Rate Respiratory 18 18 18 Rate Blood Pressure (mmHg) O2 Sat by Pulse 99 Oximetry 07/14/16 07/14/16 07/14/16 11:14 11:34 12:20 Temperature 99.3 F Pulse Rate 87 Respiratory 18 16 Rate Blood Pressure 150/87 (mmHg) O2 Sat by Pulse 99 99 Oximetry 07/14/16 07/14/16 07/14/16 13:07 13:10 14:06 Temperature Pulse Rate Respiratory 18 18 18 Rate Blood Pressure (mmHg) O2 Sat by Pulse Oximetry 07/14/16 07/14/16 07/14/16 15:44 15:45 17:16 Temperature 97.9 F Pulse Rate 83 Respiratory 16 18 18 Rate Blood Pressure 150/75 (mmHg) O2 Sat by Pulse 100 Oximetry Oxygen Devices in Use Now: None Appearance: sitting in chair, NAD Eyes: No Scleral Icterus, PERRLA Ears/Nose/Mouth/Throat: Clear Oropharnyx, Mucous Membranes Moist Neck: NL Appearance and Movements; NL JVP, Trachea Midline Respiratory: Symmetrical Chest Expansion and Respiratory Effort, Clear to Auscultation Cardiovascular: RRR Abdominal: NL Sounds; No Tenderness; No Distention, No Hepatosplenomegaly Lymphatic: No Cervical Adenopathy Extremities: No Edema, - - nv intact Neurological: Alert and Oriented x 3 Result Diagrams: 07/14/16 06:12 07/14/16 06:12 Additional Lab and Data: Lab Results 07/11/16 07/11/16 07/11/16 Range/Units 15:05 15:05 15:05 WBC 10.3 (3.5-10.8) 10^3/ul RBC 5.49 H (4.0-5.4) 10^6/ul Hgb 15.3 (14.0-18.0) g/dl Hct 45 (42-52) % MCV 82 (80-94) fL MCH 28 (27-31) pg MCHC 34 (31-36) g/dl RDW 15 (10.5-15) % Plt Count 296 (150-450) 10^3/ul MPV 8 (7.4-10.4) um3 Neut % (Auto) 79.5 (38-83) % Lymph % (Auto) 11.9 L (25-47) % [place] % (Auto) 7.5 (1-9) % Eos % (Auto) 0.3 (0-6) % Baso % (Auto) 0.8 (0-2) % Absolute Neuts (auto) 8.2 H (1.5-7.7) 10^3/ul Absolute Lymphs (auto) 1.2 (1.0-4.8) 10^3/ul Absolute Monos (auto) 0.8 (0-0.8) 10^3/ul Absolute Eos (auto) 0 (0-0.6) 10^3/ul Absolute Basos (auto) 0.1 (0-0.2) 10^3/ul Absolute Nucleated RBC 0 10^3/ul Nucleated RBC % 0 INR (Anticoag Therapy) 0.98 (0.89-1.11) Sodium 135 (133-145) mmol/L Potassium 3.6 (3.5-5.0) mmol/L Chloride 102 (101-111) mmol/L Carbon Dioxide 22 (22-32) mmol/L Anion Gap 11 (2-11) mmol/L BUN 16 (6-24) mg/dL Creatinine 0.81 (0.67-1.17) mg/dL Est GFR ( Amer) 121.5 (>60) Est GFR (Non-Af Amer) 94.5 (>60) BUN/Creatinine Ratio 19.8 (8-20) Glucose 118 H (70-100) mg/dL Calcium 10.2 (8.6-10.3) mg/dL Total Bilirubin 0.80 (0.2-1.0) mg/dL AST 25 (13-39) U/L ALT 13 (7-52) U/L Alkaline Phosphatase 89 (34-104) U/L Total Protein 7.5 (6.4-8.9) g/dL Albumin 4.3 (3.2-5.2) g/dL Globulin 3.2 (2-4) g/dL Albumin/Globulin Ratio 1.3 (1-3) Assess/Plan/Problems-Billing Assessment: 71 yo M no known medical history presents with pathologic fracture s/p OR - Patient Problems (1) Pathological fracture Comment: Left hip hemiarthroplasty 07/13/16 Concern for underlying malignancy based on CT findings of b/l hips. CT chest/abd /pelvis without obvious primary source. Pain control with PO and IV breakthrough Pathology pending (2) Hypertension Comment: In setting of pain will tx with PRN hydralazine. (3) Anxiety as acute reaction to exceptional stress Comment: ativan 1 mg PO PRN (4) DVT prophylaxis Comment: lovenox
[2016-07-15] MEDS: oxyCODONE/Acetamin 5/325 MG* TAB PO PRN ×4 (00:02→21:25)
[2016-07-15 07:01] LABS: Hematocrit 37 % (42-52); Hemoglobin 12.4 g/dl (14.0-18.0)
--- NOTE | 2016-07-15 08:13 | PN ---
Progress Note - Progress Note SOAP: Subjective: [71 y/o male s/p L concepcion for hip fracture 07/13/2016. Awaiting pathology. Patient states pain well controlled, no N/V. AMbulating well. Anxious over pathology results. ] Objective: [General- Well appearing, resting comfortably in bed, NAD MSK- + ankle dorsiflexion, plantarflexion. PT pulses 2+, sensation to light touch intact. Incision C/D/I, no drainage noted, no erythema. Dressed with antibiotic ointment and gauze dressing. Laboratory Results - last 24 hr 07/15/16 06:29 Hgb 12.4 L Hct 37 L Active Medications Generic Name Dose Route Start Last Admin Trade Name Freq PRN Reason Stop Dose Admin Bisacodyl 10 mg 07/13/16 10:51 Dulcolax Supp* MS DAILY PRN constipation Calcium Carbonate 500 mg 07/13/16 20:17 07/13/16 21:48 Tums* PO 500 mg TID PRN Administration heartburn Diphenhydramine HCl 25 mg 07/13/16 10:51 Benadryl Iv* IV Q6H PRN itching Docusate Sodium 100 mg 07/11/16 21:00 07/14/16 19:42 Colace Cap* PO Not Given BID JOANNE Enoxaparin Sodium 30 mg 07/14/16 08:00 07/14/16 07:34 Lovenox(*) SUBCUT 30 mg Q24H JOANNE Administration Hydralazine HCl 5 mg 07/11/16 18:11 Apresoline Iv* IV SLOW PU Q6H PRN SBP>180 OR DBP>110 Dextrose/Sodium Chloride 1,000 mls @ 125 mls/hr 07/13/16 11:00 07/13/16 21:24 D5w 1/2 Ns 1000 Ml Bag* IV 125 mls/hr PER RATE JOANNE Administration Lorazepam 1 mg 07/14/16 10:42 Ativan Tab(*) PO Q8H PRN ANXIETY Magnesium Hydroxide 30 ml 07/13/16 21:00 07/14/16 19:42 Milk Of Magnesia Liq* PO Not Given BID JOANNE Morphine Sulfate 4 mg 07/11/16 18:02 07/14/16 18:44 Morphine Inj (Syringe)* IV 4 mg Q4H PRN Administration PAIN Ondansetron HCl 4 mg 07/11/16 18:02 Zofran Inj* IV Q4H PRN NAUSEA Oxycodone/Acetaminophen 1 tab 07/13/16 10:51 Percocet 5/325 Tab* PO Q4H PRN PAIN - MILD Oxycodone/Acetaminophen 2 tab 07/13/16 10:51 07/15/16 05:40 Percocet 5/325 Tab* PO 2 tab Q4H PRN Administration PAIN - MODERATE Pantoprazole Sodium 40 mg 07/13/16 22:00 07/14/16 07:34 Protonix Iv* IV 40 mg DAILY JOANNE Administration Senna 1 tab 07/11/16 21:00 07/14/16 19:42 Senokot Tab* PO Not Given BID JOANNE Temazepam 15 mg 07/13/16 10:51 Restoril Cap* PO BEDTIME PRN INSOMNIA Vital Signs Temp 98.1 F 07/15/16 03:27 Pulse 77 07/15/16 03:27 Resp 20 07/15/16 05:40 BP 136/70 07/15/16 03:27 Pulse Ox 98 07/15/16 03:27 Intake & Output 07/14/16 07/15/16 07/15/16 18:59 06:59 18:59 Intake Total 360 1335 Output Total 600 850 Balance -240 485 Intake: Oral 360 1335 Output: Urine 225 850 Sweeney 375 ] Assessment: [71 y/o male s/p L concepcion for hip fracture 07/13/2016] Plan: [- DVT prophylaxis- Lovenox - Await pathology results - Continue PT/ OT ]
[2016-07-15] MEDS: Senna TAB PO SCH ×2 (09:29→21:33)
[2016-07-15] MEDS: Pantoprazole IV* 40 MG IV SCH (09:29)
[2016-07-15] MEDS: Docusate CAP* 100 MG PO SCH ×2 (09:29→21:33)
[2016-07-15] MEDS: Enoxaparin(*) 30 MG/0.3 ML SYR SUBCUT SCH (09:29)
[2016-07-15] MEDS: Magnesium Hydroxide LIQ* 30 ML UDC PO SCH ×2 (09:29→21:33)
[2016-07-15] MEDS ORDERED: Warfarin TAB(*) 10 MG PO ONE (09:30)
--- NOTE | 2016-07-15 18:20 | PN ---
Subjective Date of Service: 07/15/16 Interval History: Pain well controlled Working with PT towards goals +BM No anxiety sleep ok Objective Active Medications: Bisacodyl (Dulcolax Supp*) 10 mg AL DAILY PRN PRN Reason: constipation Calcium Carbonate (Tums*) 500 mg PO TID PRN PRN Reason: heartburn Last Admin: 07/13/16 21:48 Dose: 500 mg Diphenhydramine HCl (Benadryl Iv*) 25 mg IV Q6H PRN PRN Reason: itching Docusate Sodium (Colace Cap*) 100 mg PO BID [facility] Last Admin: 07/15/16 09:29 Dose: 100 mg Enoxaparin Sodium (Lovenox(*)) 30 mg SUBCUT Q24H [facility] Last Admin: 07/15/16 09:29 Dose: 30 mg Hydralazine HCl (Apresoline Iv*) 5 mg IV SLOW PU Q6H PRN PRN Reason: SBP>180 OR DBP>110 Dextrose/Sodium Chloride (D5w 1/2 Ns 1000 Ml Bag*) 1,000 mls @ 125 mls/hr IV PER RATE [facility] Last Admin: 07/13/16 21:24 Dose: 125 mls/hr Lorazepam (Ativan Tab(*)) 1 mg PO Q8H PRN PRN Reason: ANXIETY Magnesium Hydroxide (Milk Of Magnesia Liq*) 30 ml PO BID [facility] Last Admin: 07/15/16 09:29 Dose: 30 ml Morphine Sulfate (Morphine Inj (Syringe)*) 4 mg IV Q4H PRN PRN Reason: PAIN Last Admin: 07/14/16 18:44 Dose: 4 mg Ondansetron HCl (Zofran Inj*) 4 mg IV Q4H PRN PRN Reason: NAUSEA Oxycodone/Acetaminophen (Percocet 5/325 Tab*) 1 tab PO Q4H PRN PRN Reason: PAIN - MILD Oxycodone/Acetaminophen (Percocet 5/325 Tab*) 2 tab PO Q4H PRN PRN Reason: PAIN - MODERATE Last Admin: 07/15/16 11:00 Dose: 2 tab Pantoprazole Sodium (Protonix Iv*) 40 mg IV DAILY [facility] Last Admin: 07/15/16 09:29 Dose: 40 mg Senna (Senokot Tab*) 1 tab PO BID [facility] Last Admin: 07/15/16 09:29 Dose: 1 tab Temazepam (Restoril Cap*) 15 mg PO BEDTIME PRN PRN Reason: INSOMNIA Vital Signs 07/14/16 07/14/16 07/14/16 18:44 19:34 19:44 Temperature 100.0 F Pulse Rate 83 Respiratory 18 18 16 Rate Blood Pressure 143/81 (mmHg) O2 Sat by Pulse 98 Oximetry 07/14/16 07/14/16 07/14/16 19:46 19:55 21:46 Temperature Pulse Rate Respiratory 18 20 18 Rate Blood Pressure (mmHg) O2 Sat by Pulse Oximetry 07/14/16 07/15/16 07/15/16 23:53 00:02 02:02 Temperature 98.2 F Pulse Rate 84 Respiratory 18 18 16 Rate Blood Pressure 136/82 (mmHg) O2 Sat by Pulse 97 Oximetry 07/15/16 07/15/16 07/15/16 03:27 05:40 08:20 Temperature 98.1 F 98.3 F Pulse Rate 77 98 Respiratory 16 20 18 Rate Blood Pressure 136/70 181/83 (mmHg) O2 Sat by Pulse 98 97 Oximetry 07/15/16 07/15/16 07/15/16 10:11 10:23 11:00 Temperature Pulse Rate 99 Respiratory 16 16 Rate Blood Pressure 145/80 (mmHg) O2 Sat by Pulse 98 Oximetry 07/15/16 07/15/16 11:44 15:19 Temperature 98.1 F 98.4 F Pulse Rate 88 86 Respiratory 18 16 Rate Blood Pressure 150/80 147/66 (mmHg) O2 Sat by Pulse 97 99 Oximetry Oxygen Devices in Use Now: None Appearance: NAD Eyes: No Scleral Icterus, PERRLA Ears/Nose/Mouth/Throat: Clear Oropharnyx, Mucous Membranes Moist Neck: NL Appearance and Movements; NL JVP, Trachea Midline Respiratory: Symmetrical Chest Expansion and Respiratory Effort, Clear to Auscultation Cardiovascular: NL Sounds; No Murmurs; No JVD, RRR Abdominal: NL Sounds; No Tenderness; No Distention Neurological: Alert and Oriented x 3 Result Diagrams: 07/15/16 06:29 07/14/16 06:12 Additional Lab and Data: Lab Results 07/11/16 07/11/16 07/11/16 Range/Units 15:05 15:05 15:05 WBC 10.3 (3.5-10.8) 10^3/ul RBC 5.49 H (4.0-5.4) 10^6/ul Hgb 15.3 (14.0-18.0) g/dl Hct 45 (42-52) % MCV 82 (80-94) fL MCH 28 (27-31) pg MCHC 34 (31-36) g/dl RDW 15 (10.5-15) % Plt Count 296 (150-450) 10^3/ul MPV 8 (7.4-10.4) um3 Neut % (Auto) 79.5 (38-83) % Lymph % (Auto) 11.9 L (25-47) % [place] % (Auto) 7.5 (1-9) % Eos % (Auto) 0.3 (0-6) % Baso % (Auto) 0.8 (0-2) % Absolute Neuts (auto) 8.2 H (1.5-7.7) 10^3/ul Absolute Lymphs (auto) 1.2 (1.0-4.8) 10^3/ul Absolute Monos (auto) 0.8 (0-0.8) 10^3/ul Absolute Eos (auto) 0 (0-0.6) 10^3/ul Absolute Basos (auto) 0.1 (0-0.2) 10^3/ul Absolute Nucleated RBC 0 10^3/ul Nucleated RBC % 0 INR (Anticoag Therapy) 0.98 (0.89-1.11) Sodium 135 (133-145) mmol/L Potassium 3.6 (3.5-5.0) mmol/L Chloride 102 (101-111) mmol/L Carbon Dioxide 22 (22-32) mmol/L Anion Gap 11 (2-11) mmol/L BUN 16 (6-24) mg/dL Creatinine 0.81 (0.67-1.17) mg/dL Est GFR ( Amer) 121.5 (>60) Est GFR (Non-Af Amer) 94.5 (>60) BUN/Creatinine Ratio 19.8 (8-20) Glucose 118 H (70-100) mg/dL Calcium 10.2 (8.6-10.3) mg/dL Total Bilirubin 0.80 (0.2-1.0) mg/dL AST 25 (13-39) U/L ALT 13 (7-52) U/L Alkaline Phosphatase 89 (34-104) U/L Total Protein 7.5 (6.4-8.9) g/dL Albumin 4.3 (3.2-5.2) g/dL Globulin 3.2 (2-4) g/dL Albumin/Globulin Ratio 1.3 (1-3) Assess/Plan/Problems-Billing Assessment: 71 yo M no known medical history presents with pathologic fracture s/p OR - Patient Problems (1) Pathological fracture Comment: Left hip hemiarthroplasty 07/13/16 Concern for underlying malignancy based on CT findings of b/l hips. CT chest/abd /pelvis without obvious primary source. Checl PSA and SPEP. Can follow with onc as o/p. No need to wait for pathology results Pain control with PO and IV breakthrough Pathology pending (2) Hypertension Comment: In setting of pain will tx with PRN hydralazine. (3) Anxiety as acute reaction to exceptional stress Comment: ativan 1 mg PO PRN (4) DVT prophylaxis Comment: lovenox
[2016-07-16 07:15] LABS: Hematocrit 38 % (42-52); Hemoglobin 12.6 g/dl (14.0-18.0)
[2016-07-16] MEDS: Magnesium Hydroxide LIQ* 30 ML UDC PO SCH (07:15)
--- NOTE | 2016-07-16 08:33 | PN ---
Progress Note - Progress Note SOAP: Subjective: pt resting comfortably with no pain; no complaints Objective: Vital Signs Temp Pulse Resp BP Pulse Ox 98.2 F 91 18 153/89 97 07/16/16 07:58 07/16/16 07:58 07/16/16 07:58 07/16/16 07:58 07/16/16 07:58 Laboratory Last Values WBC 10.3 10^3/ul (3.5-10.8) 07/11/16 15:05 RBC 5.49 10^6/ul (4.0-5.4) H 07/11/16 15:05 Hgb 12.6 g/dl (14.0-18.0) L 07/16/16 06:42 Hct 38 % (42-52) L 07/16/16 06:42 MCV 82 fL (80-94) 07/11/16 15:05 MCH 28 pg (27-31) 07/11/16 15:05 MCHC 34 g/dl (31-36) 07/11/16 15:05 RDW 15 % (10.5-15) 07/11/16 15:05 Plt Count 296 10^3/ul (150-450) 07/11/16 15:05 MPV 8 um3 (7.4-10.4) 07/11/16 15:05 Neut % (Auto) 79.5 % (38-83) 07/11/16 15:05 Lymph % (Auto) 11.9 % (25-47) L 07/11/16 15:05 [place] % (Auto) 7.5 % (1-9) 07/11/16 15:05 Eos % (Auto) 0.3 % (0-6) 07/11/16 15:05 Baso % (Auto) 0.8 % (0-2) 07/11/16 15:05 Absolute Neuts (auto) 8.2 10^3/ul (1.5-7.7) H 07/11/16 15:05 Absolute Lymphs (auto) 1.2 10^3/ul (1.0-4.8) 07/11/16 15:05 Absolute Monos (auto) 0.8 10^3/ul (0-0.8) 07/11/16 15:05 Absolute Eos (auto) 0 10^3/ul (0-0.6) 07/11/16 15:05 Absolute Basos (auto) 0.1 10^3/ul (0-0.2) 07/11/16 15:05 Absolute Nucleated RBC 0 10^3/ul 07/11/16 15:05 Nucleated RBC % 0 07/11/16 15:05 INR (Anticoag Therapy) 0.98 (0.89-1.11) 07/11/16 15:05 Sodium 135 mmol/L (133-145) 07/14/16 06:12 Potassium 3.8 mmol/L (3.5-5.0) 07/14/16 06:12 Chloride 103 mmol/L (101-111) 07/14/16 06:12 Carbon Dioxide 26 mmol/L (22-32) 07/14/16 06:12 Anion Gap 6 mmol/L (2-11) 07/14/16 06:12 BUN 11 mg/dL (6-24) 07/14/16 06:12 Creatinine 0.78 mg/dL (0.67-1.17) 07/14/16 06:12 Est GFR ( Amer) 126.9 (>60) 07/14/16 06:12 Est GFR (Non-Af Amer) 98.7 (>60) 07/14/16 06:12 BUN/Creatinine Ratio 14.1 (8-20) 07/14/16 06:12 Glucose 125 mg/dL (70-100) H 07/14/16 06:12 Hemoglobin A1c 5.8 % (Less than 6.0) 07/11/16 15:05 Calcium 8.5 mg/dL (8.6-10.3) L 07/14/16 06:12 Total Bilirubin 0.80 mg/dL (0.2-1.0) 07/11/16 15:05 AST 25 U/L (13-39) 07/11/16 15:05 ALT 13 U/L (7-52) 07/11/16 15:05 Alkaline Phosphatase 89 U/L (34-104) 07/11/16 15:05 Total Protein 7.5 g/dL (6.4-8.9) 07/11/16 15:05 Albumin 4.3 g/dL (3.2-5.2) 07/11/16 15:05 Globulin 3.2 g/dL (2-4) 07/11/16 15:05 Albumin/Globulin Ratio 1.3 (1-3) 07/11/16 15:05 Prostate Specific Ag 3.073 ng/mL (0-4.000) 07/16/16 06:42 incision: c/d/i PE: NVI Assessment: s/p left hip concepcion Plan: 1) continue PT/OT 2) D/C home today; F/u with Heme/ Onc next week and Dr. Bills 4 weeks
[2016-07-16] MEDS: Docusate CAP* 100 MG PO SCH (08:44)
[2016-07-16] MEDS: Senna TAB PO SCH (08:44)
[2016-07-16] MEDS: Pantoprazole IV* 40 MG IV SCH (08:45)
[2016-07-16] MEDS: Enoxaparin(*) 30 MG/0.3 ML SYR SUBCUT SCH (08:45)
[2016-07-16] MEDS: oxyCODONE/Acetamin 5/325 MG* TAB PO PRN (12:18)
[2016-07-16 12:49] VITALS: BP 137/80
--- NOTE | 2016-07-16 15:31 | DS ---
DISCHARGE SUMMARY: DATE OF ADMISSION: 07/11/16 DATE OF DISCHARGE: 07/16/16 PRINCIPAL DIAGNOSIS: Pathological fracture, left hip. DISCHARGE DIAGNOSIS: Pathological fracture, left hip. HISTORY OF PRESENT ILLNESS: Mr. Roca is a 71-year-old gentleman who has been suffering with intermittent left hip pain for over 3 weeks and presented to the emergency room and was found to have a left femoral neck fracture, suggestive of an underlying infiltrative pathologic process. He was admitted and Orthopedics was consulted. HOSPITAL COURSE: Mr. Roca was admitted to the hospital on 07/11/16 for a left femoral neck fracture. He underwent a left hip hemiarthroplasty with Dr. Bills on 07/13/16. He tolerated the surgery well. His postoperative course was fairly unremarkable. On postop day #1, his H and H was 11.6 and 35. On postop day #2, was 12.4 and 37. On postop day #3, his H and H was 12.6 and 38. He was placed on heparin and Coumadin for DVT prophylaxis and at the time of discharge, his INR was 0.98. At the time of discharge, he was ambulating well and his pain was tolerated with p.o. medications. DISCHARGE MEDICATIONS: 1. Mets-ant-ojxdgvs multivitamin. 2. Coumadin. 3. Percocet. PHYSICAL EXAMINATION: Upon discharge, the incision was clean, dry, and healing well. No signs of infection. He was ambulating well. His lower extremity muscle group strengths were intact at 5/5. He has 2+ dorsalis pedis pulses and intact sensation. DISCHARGE INSTRUCTIONS: He was discharged home. Coumadin and Percocet were both sent to his pharmacy for postoperative pain control and DVT prophylaxis. He was asked to take 10 mg of Coumadin tonight, 8 mg Friday night, and have his INR rechecked on . The lab orders already have been sent to the lab for his INR blood work. Dr. Bills is also referring him to Dr. Briceno, the hematology/oncology physician, and would like for him to follow up within the next week. At that time, hopefully the results of the pathology will be back for him to review. He will continue Coumadin for total of 1 month with twice weekly INR draws and follow up with Dr. Bills in 3 weeks. We have asked him to call our office if he has any questions or concerns prior to that visit. JENNA PUENTE [id number]/[facility] #: [id number] SAL
[2016-07-17 16:40] LABS: Albumin 2.7 g/dL (3.4-4.7); Gamma Globulin 0.7 g/dL (0.6-1.6); Total Protein(PEP) 6.1 g/dL (6.3 - 7.9)
== END 2016-07-16 14:25 | disposition home health service (06) | DRG 470 ==
LOC: ED 13:41 → MED 18:06 → SSU 07-13 13:00
PROVIDERS: ADMIT Internal Medicine; ATTEND Orthopaedic Surgery
PROC: 0SRS039 Replacement of Left Hip Joint, Femoral Surface with Ceramic Synthetic Substitute, Cemented, Open Approach (ICD-10-PCS; principal; 2016-07-11)
DX: M84.452A Pathological fracture, left femur, initial encounter for fracture (principal); I10 Essential (primary) hypertension; Z80.42 Family history of malignant neoplasm of prostate; Z87.891 Personal history of nicotine dependence; F41.9 Anxiety disorder, unspecified; F43.0 Acute stress reaction; Z79.01 Long term (current) use of anticoagulants
CPT/HCPCS: 36415; 71010; 71260; 72170; 72192; 74177; 80048; 80053; 83036; 84153; 84155; 84165; 85014; 85018; 85025; 85610; 88271; 88275; 88291; 88305; 88311; 88341; 88342; 88365; 93005; A9270-GY; C1776; G0103; J0690; J1100; J1170; J1650; J1885; J2250; J2270; J2405; J2704; J3010; Q9967

== ENCOUNTER 2016-08-12 05:48 | Day surgery (SDC) | payer MEDICARE ==
[2016-08-12] MEDS ORDERED: Buffered Lidocaine 1% SYR 3ML* 3 ML/SYR SYRINGE INTRADERM ONE (06:00)
[2016-08-12] MEDS ORDERED: Lidocaine 1% INJ* 10 MG/ML 30 ML SDV ONE (07:24)
[2016-08-12] MEDS ORDERED: fentaNYL* 50 MCG/ML 2 ML VIAL (100 MCG VIAL) ONE (07:33)
[2016-08-12] MEDS ORDERED: Midazolam* 1 MG/ML 5 ML VIAL (5 MG) ONE (07:33)
[2016-08-12] MEDS ORDERED: ceFAZolin 2 GM PREMIX (*) 2 GM/50 ML BAG IVPB ONE (07:37)
[2016-08-12] MEDS ORDERED: Midazolam* 1 MG/ML 2 ML VIAL (2 MG) ONE (08:05)
[2016-08-12] MEDS ORDERED: Lidocaine 2% PF * 5 ML VIAL ONE (08:06)
[2016-08-12] MEDS ORDERED: Propofol* 10 MG/ML 20 ML BTL IV PUSH ONE (08:06)
--- NOTE | 2016-08-12 08:42 | SURGPN ---
Brief Operative Note - Surgery Procedures: Procedures OPERATIVE REPORT PRE-OP: Lymphoma POST-OP: Lymphoma PROCEDURE: Insertion of 8F Powerport on left chest wall SURGEON: MD Bernadine ANESTHESIA:Local with MAC Dr. Wylie ASST: none IVF: min EBL: min SPECIMEN: none DRAIN: none WOUND CLASS: One COMPLICATIONS: none TO PACU
[2016-08-12] MEDS ORDERED: oxyCODONE/Acetamin 5/325 MG* TAB PO PRN (08:46)
--- NOTE | 2016-08-12 09:03 | RAD ---
HISTORY: Status post PowerPort placement COMPARISONS: July 11, 2016 VIEWS:1: Single frontal portable view of the chest at 8:52 AM FINDINGS: LINES AND TUBES: A left-sided chest port is noted from a subclavian approach with the tip overlying the superior vena cava. CARDIOMEDIASTINAL SILHOUETTE: The cardiomediastinal silhouette is normal for portable technique. PLEURA: The costophrenic angles are sharp. No pleural abnormalities are noted. LUNG PARENCHYMA: The lungs are clear. ABDOMEN: The upper abdomen is clear. There is no subphrenic gas. BONES AND SOFT TISSUES: No bone or soft tissue abnormalities are noted. IMPRESSION: LINES AND TUBES ABOVE. NO ACTIVE CARDIOPULMONARY DISEASE.
[2016-08-12 09:24] VITALS: BP 157/71
--- NOTE | 2016-08-12 09:39 | RAD ---
INDICATION: PowerPort insertion COMPARISON: None FINDINGS: 35.9 seconds of fluoroscopy were provided for the surgical department. Fluoroscopic spot imaging of the chest were obtained for operative control and show a normal course of the left-sided PowerPort catheter which terminates in the superior vena cava. CPT II Codes: 6045F (fluoro time doc)
--- NOTE | 2016-08-13 02:40 | OP ---
DATE OF OPERATION: 08/12/16 [facility] DATE OF : 49 SURGEON: Milton Colindres MD STRATEGIC BUSINESS DEVELOPMENT: None. ANESTHESIOLOGIST: Dr. Verde. ANESTHESIA: Local with monitored anesthesia care. PRE-OP DIAGNOSIS: Lymphoma. POST-OP DIAGNOSIS: Lymphoma. OPERATIVE PROCEDURE: Insertion of 8-Pashto left chest wall percutaneous PowerPort. ESTIMATED BLOOD LOSS: Minimal. WOUND CLASSIFICATION: I. COMPLICATIONS: None. DRAINS: None. DESCRIPTION OF PROCEDURE: Written informed consent was obtained and the left chest was marked with indelible ink and preoperative antibiotics were administered. The patient was taken to the operating room and placed in the supine position. Sequential compression devices and a warming blanket were applied. The right and left chest and neck were prepped and draped in the usual sterile fashion. Time-out verification was completed. 1% lidocaine with epinephrine was infiltrated in the left infraclavicular area of the chest wall and an 18-gauge Cook needle passed down into the clavicle, the subclavian vein was punctured on the first pass with good blood return. The guidewire was inserted without difficulty. It confirmed to be in the superior vena cava by fluoroscopy. Next, a small transverse incision was made several centimeters below the initial puncture site and a subcutaneous pocket was fashioned in the usual manner. The catheter was tunneled from the pocket site to the puncture site and was placed into the junction of the superior vena cava in the right atrium using the peel-away sheath system in the usual fashion. The catheter was cut to the appropriate length and then attached to the port, which was placed in the subcutaneous pocket and sutured into position with two separate 2-0 Prolene sutures. The catheter was noted to be in the good position at the junction of the atrium and cava. The catheter was flushed and withdrew blood nicely and it was subsequently flushed with a heparin solution. Hemostasis was assured and the incision was closed in layers of 3-0 and 4-0 Polysorb suture. The needle was accessed with a right angle Pavon needle and a sterile dressing was applied in anticipation of chemotherapy administration today. The patient tolerated the procedure well and was taken to the recovery room in stable condition. The chest x-ray showed the catheter to be in good position without evidence of pneumothorax. [id number]/[facility] #: [id number] [facility]
== END 2016-08-12 09:24 | disposition home or self-care (01) ==
LOC: OR 05:48
PROVIDERS: ATTEND Surgery
DX: C85.90 Non-Hodgkin lymphoma, unspecified, unspecified site (principal); Z87.891 Personal history of nicotine dependence
CPT/HCPCS: 71010; C1788; J0690; J1642; J2250; J2704; J3010

== ENCOUNTER 2019-09-09 20:08 | Emergency (ER) | payer OTHER ==
[2019-09-09] MEDS ORDERED: NS 0.9% 1000 ML** 1,000 ML IV.FLUID IV ONE (21:06)
--- NOTE | 2019-09-09 22:07 | ED ---
Respiratory - HPI Summary HPI Summary: Patient is a 74 year-old male presenting [place] [facility] with a chief complaint of respiratory symptoms for the last week. He reports symptoms of weakness, fevers, shortness of breath, and occasional dry cough. His symptoms have been worst today, currently rated 3/10 in severity. He also endorses night sweats and left flank pain. Patient does not have a history of traveling or known contacts with confirmed COVID-19. He lives alone, but his son visits him. 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 Past medical history includes hypertension. Nonsmoker, no alcohol use, no substance use. Medications reviewed. Allergies noted. - History of Current Complaint Chief Complaint: EDWeakness Stated Complaint: WEAKNESS PER PT Time Seen by Provider: 09/09/19 21:23 Hx Obtained From: Patient Onset/Duration: Gradual Onset, Lasting Days, Still Present Initial Severity: Mild Current Severity: Moderate Pain Intensity: 3 Character: Cough (Nonproductive), Dyspnea at Rest Aggravating Factor(s): Nothing Alleviating Factor(s): Nothing Associated Signs and Symptoms: Fever, SOB - Allergy/Home Medications Allergies/Adverse Reactions: Allergies Allergy/AdvReac Type Severity Reaction Status Date / Time No Known Allergies Allergy Verified 09/09/19 23:16 Home Medications: Home Medications Acyclovir* [Zovirax 400 MG TAB*] 400 mg PO BID 09/09/19 [History Confirmed 09/08] Cholecalciferol TAB* 50 mcg PO DAILY 09/09/19 [History Confirmed 09/09/19] Dapsone TAB* 100 mg PO DAILY 09/09/19 [History Confirmed 09/09/19] Famotidine TAB* [Pepcid 20 MG TAB*] 20 mg PO DAILY PRN 09/09/19 [History Confirmed 09/09/19] Filgrastim-Sndz* [Zarxio*] 0.5 ml SUBCUT WEEKLY PRN 09/09/19 [History Confirmed 09/09/19] Levofloxacin TAB* [Levaquin TAB*] 500 mg PO DAILY PRN 09/09/19 [History Confirmed 09/09/19] Loperamide CAP* [Imodium CAP*] 2 mg PO Q4H PRN 09/09/19 [History Confirmed 09/08] Ondansetron TAB* [Zofran 4 MG Tab*] 8 mg PO Q8HR PRN 09/09/19 [History Confirmed 09/09/19] Penicillin VK TAB* [Penicillin VK 250 mg Tab*] 500 mg PO BID 09/09/19 [History Confirmed 09/09/19] Posaconazole (NF) [Noxafil (NF)] 300 mg PO DAILY 09/09/19 [History Confirmed ] Senna TAB 8.6 mg* [Senokot 8.6 mg TAB*] 8.6 mg PO BID 09/09/19 [History Confirmed 09/09/19] traMADol TAB* [Ultram*] 50 mg PO Q6HR PRN 09/09/19 [History Confirmed 09/09/19] PMH/Surg Hx/FS Hx/Imm Hx Endocrine/Hematology History: Denies: Hx Diabetes Cardiovascular History: Reports: Hx Hypertension Denies: Hx Hypercholesterolemia Musculoskeletal History: Denies: Hx Rheumatoid Arthritis, Hx Osteoporosis Sensory History: Reports: Hx Contacts or Glasses Denies: Hx Hearing Aid Opthamlomology History: Reports: Hx Contacts or Glasses Psychiatric History: Reports: Hx Anxiety - sitautional things - Cancer History Cancer Type, Location and Year: t-cell lymphoma Hx Chemotherapy: Yes - last two weeks ago from 09/09/2019 - Surgical History Surgical History: Yes Surgery Procedure, Year, and Place: R Knee Surgery Hx Anesthesia Reactions: No Infectious Disease History: No Infectious Disease History: Denies: Traveled Outside the [place] in Last 30 Days - Family History Known Family History: Positive: Hypertension - Social History Alcohol Use: None Hx Substance Use: No Substance Use Type: Reports: None Hx Tobacco Use: No Smoking Status (MU): Never Smoked Tobacco Review of Systems Positive: Fever, Skin Diaphoresis - night sweats, Other - weakness Positive: Shortness Of Breath, Cough - dry, occasional Positive: flank pain - left All Other Systems Reviewed And Are Negative: Yes Physical Exam - Summary Physical Exam Summary: VITAL SIGNS: Reviewed. GENERAL: Patient is an elderly fragile male who is lying comfortable in the stretcher. Patient is not in any acute respiratory distress. HEAD AND FACE: No signs of trauma. No ecchymosis, hematomas or skull depressions. No sinus tenderness. EYES: PERRLA, EOMI x 2, No injected conjunctiva, no nystagmus. EARS: Hearing grossly intact. Ear canals and tympanic membranes are within normal limits. MOUTH: Dry oral mucosa. NECK: Supple, trachea is midline, no adenopathy, no JVD, no carotid bruit, no c- spine tenderness, neck with full ROM. CHEST: Symmetric, no tenderness at palpation. Power port in the left chest. LUNGS: Clear to auscultation bilaterally. No wheezing or crackles. CVS: Regular rate and rhythm, S1 and S2 present, no murmurs or gallops appreciated. ABDOMEN: Soft, non-tender. No signs of distention. No rebound, no guarding, and no masses palpated. Bowel sounds are normal. BACK: Left costovertebral tenderness. EXTREMITIES: FROM in all major joints, no edema, no cyanosis or clubbing. NEURO: Alert and oriented x 3. No acute neurological deficits. Speech is normal and follows commands. SKIN: Dry and warm. Triage Information Reviewed: Yes Vital Signs On Initial Exam: Initial Vitals Temp Pulse Resp BP Pulse Ox 101.1 F 106 20 111/62 96 09/09/19 20:11 09/09/19 20:11 09/09/19 20:11 09/09/19 20:11 09/09/19 20:11 Vital Signs Reviewed: Yes Procedures - Sedation Patient Received Moderate/Deep Sedation with Procedure: No Diagnostics - Vital Signs Vital Signs Temp Pulse Resp BP Pulse Ox 09/09/19 20:11 101.1 F 106 20 111/62 96 - Laboratory Lab Results: Lab Results 09/09/19 Range/Units 21:35 Influenza A (Rapid) Pending Influenza B (Rapid) Pending Result Diagrams: 09/09/19 21:35 09/09/19 21:35 Lab Statement: Any lab studies that have been ordered have been reviewed, and results considered in the medical decision making process. - Radiology Chest X-Ray Radiology Interpretation Completed By: Radiologist Summary of Radiographic Findings: No acute pathology. Dr. Hernandez has reviewed and interpreted this report. Pending official read. - CT Abdomen/Pelvis CT CT Interpretation Completed By: Radiologist Summary of CT Findings: Impression: Mid sigmoid diverticulitis with associated adjacent pericolonic abscess involving the bladder dome. Dr. Hernandez has reviewed this report. - EKG 2230 Cardiac Rate: NL - 88 BPM EKG Rhythm: Sinus Rhythm Summary of EKG Findings: An EKG at 2230 reveals sinus rhythm at rate of [address] elev[address]. ST depressions in leads I, aVL, V2, and V3. Dr. Hernandez has reviewed and interpreted this EKG. Re-Evaluation - Re-Evaluation First Eval Re-Evaluation Time: 22:40 Comment: Patient declines rectal exam. Disposition - Course Assessment/Plan: Patient is a 74 year-old male presenting to [facility] with a chief complaint of respiratory symptoms for the last week. He reports symptoms of weakness, fevers, shortness of breath, and occasional dry cough. His symptoms have been worst today, currently rated 3/10 in severity. He also endorses night sweats and left flank pain. Patient does not have a history of traveling or known contacts with confirmed COVID-19. He lives alone, but his son visits him. 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 Past medical history includes hypertension. Nonsmoker, no alcohol use, no substance use. Medications reviewed. Allergies noted. In the ED course the patient was placed on a desk monitor, IV access was obtained. Patient was positive for SIRS criteria, therefore the patient was given IV fluids 30 cc/KG, and he was given Zosyn as a broad-spectrum antibiotic. Past medical records reviewed. Blood test w/o a significant abnormality except for WBCs 17.9, RBCs 2.3, hemoglobin 6.2, hematocrit 19, absolute neutrophils of 14.8 , INR 1.4, fibrinogen 714, glucose 150, lactic acid 2.6, alkaline phosphatase 160, troponin 0.24, CRP 261, BNP 711, total protein 6.3. Since the patient seems to be anemic, I ordered for the patients blood type and antibody screen with 2 units of PRBCs. The patient declined a rectal exam, and he denies any black stools or bright red blood per rectum. Abdominal and pelvic CT Impression : Mid sigmoid diverticulitis with associated adjacent pericolonic abscess involving the bladder dome. I discussed the case with Dr. Webb and she is unable to accept the patient since we have no urology consult continuous dryout operator helper. Thus, I discussed the case with Dr. Mercedes from [facility], and accepted the patient for transfer. Patient is hemodynamically stable and alert and oriented x 3. - Diagnoses Provider Diagnoses: Symptomatic anemia, Diverticulitis of large intestine with abscess - Physician Notifications Discussed Care Of Patient With: Nando Vazquez - [facility] Instructed by Provider To: Transfer - I discussed the patient's case with Dr. Webb from hospitalist services, and she is unable to accept the patient because there is no urology continuous dryout operator helper. Dr. Mercedes from [facility] accepts the patient for transfer. Reason For Transfer: Specialty available at [facility] but not continuous dryout operator helper. - Critical Care Time Critical Care Time: 75-104 min Discharge ED - Sign-Out/Discharge Documenting (check all that apply): Patient Departure - Patient accepted for transfer to [facility] by Dr. Mercedes. - Discharge Plan Condition: Stable Disposition: TRANS HIGHER LVL OF CARE FAC Referrals: Christiano Irving MD [Primary Care Provider] - - Billing Disposition and Condition Condition: STABLE Disposition: Trans Higher Lvl of Care Fac - Attestation Statements Document Initiated by Denishae: Yes Documenting Scribe: Gayathri Guillory Provider For Whom Scribe is Documenting (Include Credential): Willie Hernandez MD Scribe Attestation: [email or web address], scribed for Willie Hernandez MD on 09/10/19 at 0301. Scribe Documentation Reviewed: Yes Provider Attestation: The documentation as recorded by the Gayathri iraheta accurately reflects the service I personally performed and the decisions made by me, Willie Hernandez MD Status of Scribe Document: Viewed
[2019-09-09 22:10] LABS: Hematocrit 19 % (42-52); Hemoglobin 6.2 g/dL (14.0-18.0); Mean Corpuscular HGB Conc 32 g/dL (31-36); Mean Corpuscular Hemoglobin 26 pg (27-31); Mean Corpuscular Volume 80 fL (80-94); Mean Platelet Volume 8.5 fL (7.4-10.4); Platelet Count 391 10^3/uL (150-450); Red Blood Count 2.38 10^6 /uL (4.18-5.48); Red Cell Distribution Width 22 % (10-15); White Blood Count 17.9 10^3/uL (3.5-10.8)
[2019-09-09 22:15] LABS: Activated Partial Thrombo Time 29.8 seconds (26.0-38.0); Fibrinogen 714.4 mg/dL (110.8-404.3); INR 1.4 (0.82-1.09)
[2019-09-09 22:19] LABS: ALT 29 U/L (7-52); AST 33 U/L (13-39); Albumin 3.4 g/dL (3.2-5.2); Albumin/Globulin Ratio 1.2 (1-3); Alkaline Phosphatase 160 U/L (34-104); Anion Gap 10 mmol/L (2-11); BUN/Creatinine Ratio 14.6 (8-20); Blood Urea Nitrogen 13 mg/dL (6-24); C Reactive Protein 261.56 mg/L (<8.01); CO2 Carbon Dioxide 24 mmol/L (22-32); Chloride 101 mmol/L (101-111); Creatine Kinase 19 U/L (10-223); EGFR African American 101.7 (>60); Globulin 2.9 g/dL (2-4); Glucose 150 mg/dL (70-100); Potassium 3.5 mmol/L (3.5-5.0); Sodium 135 mmol/L (135-145); Total Protein 6.3 g/dL (6.4-8.9)
[2019-09-09 22:20] LABS: Influenza A Molecular Negative (Negative); Influenza B Molecular Negative (Negative)
[2019-09-09 22:23] LABS: CKMB ng/mL 2.8 ng/mL (0.6-6.3)
[2019-09-09 22:28] LABS: Troponin I 0.24 ng/mL (<0.03)
[2019-09-09] MEDS ORDERED: Piperacillin/Tazobac ADVAN(*) 3.375 GM in NS 0.9% 100 ML* 100 ML IVPB ONE (22:33)
[2019-09-09 22:35] LABS: Polychromasia 1+
[2019-09-09 22:36] LABS: Microcytosis 2+
[2019-09-09 22:37] LABS: ABS Basophils 0.1 10^3/ul (0-0.2); ABS Lymphocytes 1.8 10^3/ul (1.0-4.8); ABS Monocytes 1.2 10^3/ul (0-0.8); ABS Neutrophils 14.8 10^3/ul (1.5-7.7); Eosinophil % 0.1 %; Lymphocyte % 9.9 %; Nucleated Red Blood Cells % 0.1
[2019-09-09 22:40] LABS: TSH (Thyroid Stimulating Horm) 3.15 mcIU/mL (0.34-5.60)
[2019-09-09 23:07] LABS: Urine Appearance Cloudy; Urine Bilirubin Negative (Negative); Urine Blood Negative (Negative); Urine Color Amber; Urine Glucose Negative (Negative); Urine Ketones Negative (Negative); Urine Nitrite Negative (Negative); Urine Protein 2+(100 mg/dL) (Negative); Urine Urobilinogen Negative (Negative)
[2019-09-09 23:10] LABS: Urine Bacteria Absent (Absent); Urine Red Blood Cell Absent (Absent); Urine White Blood Cell Trace(0-5/hpf) (Absent)
[2019-09-09 23:15] LABS: Erythrocyte Sed Rate 97 mm/Hr (0-19)
[2019-09-09] MEDS ORDERED: Morphine 4 MG/ML VIAL (1 ml) 4 MG/ML VIAL IV ONE (23:37)
[2019-09-09] MEDS ORDERED: Ondansetron INJ* 2 MG/ML VIAL IV ONE (23:37)
[2019-09-09] MEDS ORDERED: NS 0.9% 1000 ML** 1,000 ML IV ONE (23:38)
[2019-09-10] MEDS ORDERED: Acetaminophen TAB* 325 MG PO ONE (00:29)
[2019-09-10] MEDS ORDERED: Acetaminophen TAB* 325 MG ONE (00:30)
[2019-09-10] MEDS ORDERED: metroNIDAZOLE IV 500 MG/100ML* 500 MG/100 ML BAG IVPB ONE (00:37)
[2019-09-10] MEDS ORDERED: traMADol TAB* 50 MG PO ONE (01:05)
[2019-09-10 02:10] LABS: Troponin I 0.25 ng/mL (<0.03)
[2019-09-10 03:16] VITALS: BP 109/63
== END 2019-09-10 04:19 | disposition short-term general hospital (02) ==
LOC: ED 20:08
DX: D64.9 Anemia, unspecified (principal); K57.20 Diverticulitis of large intestine with perforation and abscess without bleeding; R06.02 Shortness of breath; R10.84 Generalized abdominal pain; R05 Cough; I10 Essential (primary) hypertension; F41.9 Anxiety disorder, unspecified; Z79.899 Other long term (current) drug therapy
CPT/HCPCS: 36415; 36430; 71045; 74176; 80053; 81003; 81015; 82550; 82553; 83605; 83735; 83880; 84443; 84484; 85025; 85384; 85610; 85652; 85730; 86140; 86850; 86900; 86901; 86922; 87040; 87086; 93005; 99285; A9270-GY; J2270; J2405; J2543; P9040